=== PATIENT | female | born 1975 | race American Indian/Alaskan Native ===

== ENCOUNTER 2021-05-21 14:53 | Emergency (ER) | payer OTHER ==
[2021-05-21] MEDS ORDERED: ASPIRIN 325 MG TAB PO ONE (15:38)
[2021-05-21] MEDS ORDERED: MECLIZINE 25 MG TAB PO ONE (15:38)
[2021-05-21 15:48] VITALS: BP 135/74
--- NOTE | 2021-05-21 15:58 | Emergency Department Report ---
ED General Adult HPI - General Chief complaint: Chest Pain Stated complaint: chest pains Time Seen by Provider: 05/21/21 15:38 Source: patient Mode of arrival: Ambulatory Limitations: No Limitations - History of Present Illness Initial comments: Patient is a 45-year-old female presents emergency room with complaints of dizziness that began 3 days ago. She has associated head pressure, chest pain, palpitations, tingling all over. Patient states that she has been wanting to come off of her blood pressure medications so she reports that she has been cutting her pills in half herself and has only been taking 5 mg of amlodipine daily even though she is prescribed 10 mg. She did not discuss this with a doctor before she did it. Patient states that she also has a history of anemia and has not been taking her iron pills for approximately 2 months. She denies any shortness of breath, cough, hemoptysis, fever, vomiting, diarrhea, leg swelling, complete numbness, weakness, speech disturbance, gait disturbance. No allergies to medications. She reports that the paramedics evaluated her 3 days ago and her blood pressure was 160/110 systolic. - Related Data Previous Rx's Medication Instructions Recorded Last Taken Type Meclizine [Antivert] 25 mg PO TID PRN #30 tablet 05/21/21 Unknown Rx Allergies Allergy/AdvReac Type Severity Reaction Status Date / Time No Known Allergies Allergy Verified 05/21/21 15:51 ED Review of Systems ROS: Stated complaint: chest pains Other details as noted in HPI Comment: All other systems reviewed and negative ED Past Medical Hx - Medications Home Medications: Home Medications Medication Instructions Recorded Confirmed Last Taken Type Meclizine [Antivert] 25 mg PO TID PRN #30 tablet 05/21/21 Unknown Rx ED Physical Exam - General Limitations: No Limitations General appearance: alert, in no apparent distress - Head Head exam: Present: atraumatic, normocephalic - Eye Eye exam: Present: normal appearance - ENT ENT exam: Present: mucous membranes moist - Respiratory Respiratory exam: Present: normal lung sounds bilaterally. Absent: respiratory distress, wheezes, rales, rhonchi, stridor, chest wall tenderness, accessory muscle use, decreased breath sounds, prolonged expiratory - Cardiovascular Cardiovascular Exam: Present: regular rate, normal rhythm, normal heart sounds. Absent: systolic murmur, diastolic murmur, rubs, gallop - Neurological Exam Neurological exam: Present: alert, oriented X3, CN II-XII intact, normal gait. Absent: motor sensory deficit - Psychiatric Psychiatric exam: Present: normal affect, normal mood - Skin Skin exam: Present: warm, dry, intact ED Course Vital Signs 05/21/21 05/21/21 15:09 15:48 Temperature 98.2 F Pulse Rate 81 Respiratory 15 16 Rate Blood Pressure 135/74 ED Medical Decision Making - Lab Data Result diagrams: 05/21/21 15:46 05/21/21 15:46 Lab Results 05/21/21 05/21/21 05/21/21 Range/Units 15:46 15:46 15:46 WBC 7.7 (4.5-11.0) K/mm3 RBC 5.32 H (3.65-5.03) M/mm3 Hgb 13.4 (10.1-14.3) gm/dl Hct 42.7 (30.3-42.9) % MCV 80 (79-97) fl MCH 25 L (28-32) pg MCHC 31 (30-34) % RDW 15.3 H (13.2-15.2) % Plt Count 395 (140-440) K/mm3 Lymph % (Auto) 22.2 (13.4-35.0) % [place] % (Auto) 6.5 (0.0-7.3) % Eos % (Auto) 5.5 H (0.0-4.3) % Baso % (Auto) 0.6 (0.0-1.8) % Lymph # (Auto) 1.7 (1.2-5.4) K/mm3 [place] # (Auto) 0.5 (0.0-0.8) K/mm3 Eos # (Auto) 0.4 (0.0-0.4) K/mm3 Baso # (Auto) 0.0 (0.0-0.1) K/mm3 Seg Neutrophils % 65.2 (40.0-70.0) % Seg Neutrophils # 5.0 (1.8-7.7) K/mm3 Sodium 139 (137-145) mmol/L Potassium 4.1 (3.6-5.0) mmol/L Chloride 100.0 (98-107) mmol/L Carbon Dioxide 23 (22-30) mmol/L Anion Gap 20 mmol/L BUN 11 (7-17) mg/dL Creatinine 0.8 (0.6-1.2) mg/dL Estimated GFR > 60 ml/min BUN/Creatinine Ratio 14 % Glucose 112 H (65-100) mg/dL Calcium 9.8 (8.4-10.2) mg/dL Magnesium 2.40 H (1.7-2.3) mg/dL Total Bilirubin 0.20 (0.1-1.2) mg/dL AST 26 (5-40) units/L ALT 21 (7-56) units/L Alkaline Phosphatase 99 (35-129) units/L Total Creatine Kinase 421 H (30-135) units/L Troponin T < 0.010 (0.00-0.029) ng/mL Total Protein 7.8 (6.3-8.2) g/dL Albumin 4.4 (3.9-5) g/dL Albumin/Globulin Ratio 1.3 % TSH 2.720 (0.270-4.200) mlU/mL HCG, Qual (Negative) 05/21/21 Range/Units 15:46 WBC (4.5-11.0) K/mm3 RBC (3.65-5.03) M/mm3 Hgb (10.1-14.3) gm/dl Hct (30.3-42.9) % MCV (79-97) fl MCH (28-32) pg MCHC (30-34) % RDW (13.2-15.2) % Plt Count (140-440) K/mm3 Lymph % (Auto) (13.4-35.0) % [place] % (Auto) (0.0-7.3) % Eos % (Auto) (0.0-4.3) % Baso % (Auto) (0.0-1.8) % Lymph # (Auto) (1.2-5.4) K/mm3 [place] # (Auto) (0.0-0.8) K/mm3 Eos # (Auto) (0.0-0.4) K/mm3 Baso # (Auto) (0.0-0.1) K/mm3 Seg Neutrophils % (40.0-70.0) % Seg Neutrophils # (1.8-7.7) K/mm3 Sodium (137-145) mmol/L Potassium (3.6-5.0) mmol/L Chloride (98-107) mmol/L Carbon Dioxide (22-30) mmol/L Anion Gap mmol/L BUN (7-17) mg/dL Creatinine (0.6-1.2) mg/dL Estimated GFR ml/min BUN/Creatinine Ratio % Glucose (65-100) mg/dL Calcium (8.4-10.2) mg/dL Magnesium (1.7-2.3) mg/dL Total Bilirubin (0.1-1.2) mg/dL AST (5-40) units/L ALT (7-56) units/L Alkaline Phosphatase (35-129) units/L Total Creatine Kinase (30-135) units/L Troponin T (0.00-0.029) ng/mL Total Protein (6.3-8.2) g/dL Albumin (3.9-5) g/dL Albumin/Globulin Ratio % TSH (0.270-4.200) mlU/mL HCG, Qual Negative (Negative) - EKG Data EKG shows normal: sinus rhythm, axis, intervals Rate: normal - EKG Data 05/21/21 17:41 LAE low voltage no STEMI no T wave inversion - Radiology Data Radiology results: report reviewed Ordering Physician: EARLINE GLYNN Date of Service: 05/21/21 Procedure(s): XR chest routine 2V Accession Number(s): [id number] cc: EARLINE GLYNN Fluoro Time In Minutes: CHEST PA AND LATERAL VIEWS INDICATION: cp. COMPARISON: None. FINDINGS: Support devices: None. Heart: Within normal limits. Lungs/Pleura: No acute pulmonary or pleural findings. IMPRESSION: 1. No acute findings. Signer Name: Earl Trimble MD Signed: 05/21/2021 4:02 PM Workstation Name: [id number] Transcribed By: ADONAY Dictated By: Earl Trimble MD Electronically Authenticated By: Earl Trimble MD Signed Date/Time: 05/21/211601 DD/ 01 TD/TT: - Medical Decision Making Patient is a 45-year-old female presents emergency room with complaints of dizziness that began 3 days ago. She has associated head pressure, chest pain, palpitations, tingling all over. Patient states that she has been wanting to come off of her blood pressure medications so she reports that she has been cutting her pills in half herself and has only been taking 5 mg of amlodipine daily even though she is prescribed 10 mg. She did not discuss this with a doctor before she did it. Patient states that she also has a history of anemia and has not been taking her iron pills for approximately 2 months. She denies any shortness of breath, cough, hemoptysis, fever, vomiting, diarrhea, leg sw elling, complete numbness, weakness, speech disturbance, gait disturbance. No allergies to medications. She reports that the paramedics evaluated her 3 days ago and her blood pressure was 160/110 systolic. Vitals are stable. Labs are stable. Troponin is negative. Chest x-ray 1. No acute findings. EKG with LAE, low voltage, no STEMI, no T wave inversion. Patient given meclizine and aspirin with improvement of her symptoms. Discussed all results with patient. She was feeling much better and ready to go home. Discussed the importance of outpatient follow-up. Discussed return precautions. Heart score is 2, low risk for cardiac event. Advised patient Please take medication as prescribed as needed. Increase your water intake. Eat a low-sodium diet. Incorporate 30 to 60 minutes of daily exercise. Keep a blood pressure log. Please take your blood pressure medication as prescribed by your doctor. Follow-up with your primary care doctor. Follow-up with a manager mass. Return to emergency room for any new or worsening symptoms. Critical care attestation.: If time is entered above; I have spent that time in minutes in the direct care of this critically ill patient, excluding procedure time. ED Disposition Clinical Impression: Dizziness, Palpitations, Pressure in head Disposition: 01 HOME / SELF CARE / HOMELESS Is pt being admited?: No Does the pt Need Aspirin: Yes (given) Condition: Stable Instructions: Dizziness, [id number] Additional Instructions: Please take medication as prescribed as needed. Increase your water intake. Eat a low-sodium diet. Incorporate 30 to 60 minutes of daily exercise. Keep a blood pressure log. Please take your blood pressure medication as prescribed by your doctor. Follow-up with your primary care doctor. Follow-up with a manager mass. Return to emergency room for any new or worsening symptoms. Prescriptions: Meclizine [Antivert] 25 mg PO TID PRN #30 tablet PRN Reason: Vertigo Referrals: PRIMARY CARE, [Primary Care Provider] - 3-5 Days ISRAEL KANG MD [Staff Physician] - 3-5 Days Forms: Work/School Release Form(ED) Time of Disposition: 17:28 Print Language: V[place] HEART Score - HEART Score History: Slightly suspicious EKG: Normal Age: 45-65 Risk factors: 1-2 risk factors Troponin: Troponin T < 0.010 ng/mL (0.00-0.029) 05/21/21 15:46 Troponin: < normal limit HEART Score: 2
--- NOTE | 2021-05-21 16:07 | XRay Report ---
CHEST PA AND LATERAL VIEWS INDICATION: cp. COMPARISON: None. FINDINGS: Support devices: None. Heart: Within normal limits. Lungs/Pleura: No acute pulmonary or pleural findings. IMPRESSION: 1. No acute findings. Signer Name: Earl Trimble MD Signed: 05/21/2021 4:02 PM Workstation Name: [id number]
[2021-05-21 16:33] LABS: Alanine Aminotransferase 21 units/L (7-56); Albumin 4.4 g/dL (3.9-5); BUN/Creatinine Ratio 14; Basophils % (Auto) 0.6 % (0.0-1.8); Blood Urea Nitrogen 11 mg/dL (7-17); Calcium 9.8 mg/dL (8.4-10.2); Eosinophils # (Auto) 0.4 K/mm3 (0.0-0.4); Eosinophils % (Auto) 5.5 % (0.0-4.3); Hematocrit 42.7 % (30.3-42.9); Hemoglobin 13.4 gm/dl (10.1-14.3); Hemolysis Index 9; Lymphocytes # (Auto) 1.7 K/mm3 (1.2-5.4); Lymphocytes % (Auto) 22.2 % (13.4-35.0); Mean Corpuscular HGB Conc 31 % (30-34); Mean Corpuscular Volume 80 fl (79-97); Monocytes # (Auto) 0.5 K/mm3 (0.0-0.8); Monocytes % (Auto) 6.5 % (0.0-7.3); Platelet Count 395 K/mm3 (140-440); Red Blood Count 5.32 M/mm3 (3.65-5.03); Red Cell Distribution Width 15.3 % (13.2-15.2)
--- NOTE | 2021-05-23 10:19 | Electrocardiograph Report ---
[facility] Test Date: 2021-05-21 Test Time: 15:11:06 Pat Name: ALEX LAW Department: Room: Gender: F Clinical Physician Assistant: JUAN : 1975 Requested By: FAUSTINO MASSEY Order Number: [id number] Reading MD: Jemima Tran Measurements Intervals [place] Rate: 89 P: 20 NM: 156 QRS: 49 QRSD: 80 T: 40 QT: 363 QTc: 442 Interpretive Statements Sinus rhythm Probable left atrial enlargement Low voltage, precordial leads No previous ECG available for comparison Electronically Signed On 05-23-2021 10:19:11 EST by Jemima Tran
== END 2021-05-21 17:49 | disposition home or self-care (01) ==
LOC: ED 14:53
DX: R42 Dizziness and giddiness (principal); R00.2 Palpitations; G44.209 Tension-type headache, unspecified, not intractable; R07.9 Chest pain, unspecified
CPT/HCPCS: 36415; 71046; 80053; 82550; 83735; 84443; 84484; 84703; 85025; 93005; 99284